=== PATIENT | female | born 1940 | race Caucasian/White ===

== ENCOUNTER 2023-08-10 11:38 | Inpatient (IN) | payer MEDICARE ==
[2023-08-10 12:40] LABS: #Basophils 0.1 thou/uL (0.0-0.2); #Eosinphils 0.2 thou/uL (0.0-0.7); #Monocytes 0.4 thou/uL (0.11-0.59); %Eosinophils 1.5 % (0.0-10.0); %Lymphocytes 15.4 % (21.0-51.0); %Monocytes 4.1 % (0.0-10.0); %Neutrophils 77.7 % (42.0-75.0); Hematocrit 47.1 % (36.0-47.0); Hemoglobin 14.8 g/dL (12.0-16.0); Mean Corpuscular HGB CONC 31.4 g/dL (32.0-36.0); Mean Corpuscular Hemoglobin 29.3 pg (27.0-31.0); Mean Corpuscular Volume 93.3 fl (78.0-98.0); Mean Platelet Volume 10.1 fL (7.4-10.4); Platelet Count 222 10x3/uL (130-400); RBC Distribution Width 14.3 % (11.5-14.5); Red Blood Cell (RBC) Count 5.05 mill/uL (4.20-5.40); White Blood Cell (WBC) Count 10.3 10x3/uL (4.8-10.8)
[2023-08-10 12:45] LABS: SARS-CoV-2 NAA Rapid Test Not Detected (NotDetected)
[2023-08-10 13:08] LABS: ALT (SGPT) 20 U/L (8-55); AST (SGOT) 29 U/L (5-34); Albumin 3.6 g/dL (3.4-4.8); Alkaline Phosphatase 53 U/L (40-110); Anion Gap 18 mmol/L (10-20); BUN (Urea Nitrogen) 23 mg/dL (9.8-20.1); Bilirubin, Total 0.4 mg/dL (0.2-1.2); Calc. Creatinine Clearance 0 mL/min (70-130); Calcium 8.8 mg/dL (7.8-10.44); Carbon Dioxide 20 mmol/L (23-31); Chloride 106 mmol/L (98-107); Estimated GFR 50; Glucose 105 mg/dL (83-110); Potassium 3.9 mmol/L (3.5-5.1); Protein, Total 6.6 g/dL (5.8-8.1); Sodium 140 mmol/L (136-145)
[2023-08-10 13:20] LABS: Critical Call Chem Troponin I ERS.DEC @1320; Troponin I 0.345 ng/mL (< 0.028)
[2023-08-10] MEDS ORDERED: Furosemide 40 MG (4 mL) VIAL ONE (13:32)
[2023-08-10] MEDS ORDERED: Enoxaparin 60 MG (0.6 mL) SYRINGE ONE (13:33)
[2023-08-10] MEDS ORDERED: HYDROcodone/Acetaminophen 5/325 mg Tablet PO PRN (14:40)
[2023-08-10] MEDS ORDERED: Ondansetron PF 4 MG/2 ML Vial IVP PRN (14:40)
[2023-08-10] MEDS ORDERED: Senokot S 8.6-50 MG TAB PO PRN (14:40)
[2023-08-10 16:59] LABS: Critical Call Chem Troponin I NUR.JR24 @1659; Troponin I 3.434 ng/mL (< 0.028)
[2023-08-10] MEDS ORDERED: Morphine 2 MG/ML VIAL ONE (19:49)
[2023-08-10 20:47] LABS: Critical Call Chem Troponin I NUR.JR24 @2047; Troponin I 6.414 ng/mL (< 0.028)
[2023-08-10] MEDS ORDERED: Famotidine 20 MG TAB PO SCH (21:00)
[2023-08-10] MEDS ORDERED: Enoxaparin 60 MG (0.6 mL) SYRINGE SC SCH (21:00)
[2023-08-10 22:11] VITALS: BMI 23.1
[2023-08-11] MEDS: Acetaminophen 325 MG TAB PO PRN ×3 (01:48→16:12)
[2023-08-11] MEDS ORDERED: HYDROcodone/Acetaminophen 5/325 mg Tablet PO PRN (01:59)
[2023-08-11] MEDS ORDERED: Morphine 2 MG/ML VIAL SLOW IVP PRN (03:36)
[2023-08-11 04:25] LABS: #Basophils 0.1 thou/uL (0.0-0.2); #Eosinphils 0.1 thou/uL (0.0-0.7); #Monocytes 0.6 thou/uL (0.11-0.59); #Neutrophils 4.6 thou/uL (1.40-6.50); %Basophils 0.8 % (0.0-1.0); %Eosinophils 1.1 % (0.0-10.0); %Lymphocytes 32.1 % (21.0-51.0); %Monocytes 7.9 % (0.0-10.0); Hemoglobin 12.9 g/dL (12.0-16.0); Mean Corpuscular HGB CONC 33.1 g/dL (32.0-36.0); Mean Corpuscular Hemoglobin 29.9 pg (27.0-31.0); Mean Platelet Volume 10.5 fL (7.4-10.4); Platelet Count 203 10x3/uL (130-400); RBC Distribution Width 14.4 % (11.5-14.5); Red Blood Cell (RBC) Count 4.32 mill/uL (4.20-5.40); White Blood Cell (WBC) Count 7.9 10x3/uL (4.8-10.8)
[2023-08-11 04:48] LABS: Mean Corpuscular Volume 90.3 fl (78.0-98.0)
[2023-08-11 04:57] LABS: Anion Gap 15 mmol/L (10-20); BUN (Urea Nitrogen) 25 mg/dL (9.8-20.1); Calc. Creatinine Clearance 47 mL/min (70-130); Calcium 8.6 mg/dL (7.8-10.44); Carbon Dioxide 23 mmol/L (23-31); Chloride 106 mmol/L (98-107); Estimated GFR 66; Glucose 86 mg/dL (83-110); Potassium 3.5 mmol/L (3.5-5.1); Sodium 140 mmol/L (136-145)
[2023-08-11] MEDS ORDERED: Furosemide 40 MG (4 mL) VIAL SLOW IVP SCH (06:00)
[2023-08-11 08:26] LABS: Cardiac Risk 4.5 (Less than 4.5)
[2023-08-11] MEDS ORDERED: CATH FS PRN (09:00)
[2023-08-11] MEDS ORDERED: Enoxaparin 60 MG (0.6 mL) SYRINGE SC SCH (09:00)
[2023-08-11] MEDS ORDERED: Aspirin 325 MG TAB PO SCH (09:00)
[2023-08-11] MEDS: Sacubitril 24MG/Valsartan 26 MG TAB PO SCH ×2 (09:47→20:39)
[2023-08-11] MEDS ORDERED: Heparin 10,000 UNITS/ 10 ML VIAL ONE (10:07)
[2023-08-11] MEDS ORDERED: fentaNYL 50 mcg/mL 1 mL Vial ONE (10:07)
[2023-08-11] MEDS ORDERED: Midazolam HCl 2 mg/2 ml Vial ONE (10:07)
[2023-08-11] MEDS ORDERED: Nitroglycerin 50 MG/250 ML BOT 0 ML ONE (10:08)
[2023-08-11] MEDS ORDERED: Ketorolac Tromethamine 30 MG (1 mL) VIAL ONE (11:17)
[2023-08-11] MEDS ORDERED: Nitroglycerin 2% Ointment 1 INCH/1 GM Packet ONE ×2 (11:33→11:45)
[2023-08-11] MEDS ORDERED: hydrALAZINE 20 MG/ML VIAL ONE (11:45)
[2023-08-11] MEDS ORDERED: Nitroglycerin 4.9 GM Bottle ONE (11:55)
[2023-08-11] MEDS ORDERED: Iopamidol 370 76% 100 ML VIAL ONE (12:40)
[2023-08-11] MEDS ORDERED: Clopidogrel Bisulfate 300 MG TAB PO SCH (14:00)
[2023-08-11] MEDS: Carvedilol 6.25 MG TAB PO SCH (16:12)
[2023-08-11] MEDS: Atorvastatin Calcium 40 MG TAB PO SCH (20:39)
[2023-08-11] MEDS ORDERED: Potassium Chloride 20 MEQ TAB PO SCH (23:15)
[2023-08-12 05:17] LABS: Anion Gap 14 mmol/L (10-20); BUN (Urea Nitrogen) 29 mg/dL (9.8-20.1); Calc. Creatinine Clearance 35 mL/min (70-130); Calcium 8.9 mg/dL (7.8-10.44); Carbon Dioxide 22 mmol/L (23-31); Chloride 107 mmol/L (98-107); Estimated GFR 48; Glucose 92 mg/dL (83-110); Magnesium 2.1 mg/dL (1.6-2.6); Potassium 4.4 mmol/L (3.5-5.1); Sodium 139 mmol/L (136-145)
[2023-08-12] MEDS ORDERED: Carvedilol 6.25 MG TAB PO SCH (10:15)
[2023-08-12] MEDS ORDERED: Empagliflozin 10 MG TAB PO SCH (10:15)
[2023-08-12] MEDS: Clopidogrel Bisulfate 75 MG TAB PO SCH (10:37)
[2023-08-12] MEDS: Spironolactone 25 MG TAB PO SCH (10:37)
[2023-08-12] MEDS: Aspirin 81 mg Enteric Coated Tablet PO SCH (10:37)
[2023-08-12] MEDS: Sacubitril 24MG/Valsartan 26 MG TAB PO SCH ×2 (10:38→20:34)
[2023-08-12] MEDS: Carvedilol 6.25 MG TAB PO SCH ×3 (10:38→17:30)
[2023-08-12] MEDS: Methyl Salicylate/Menthol 85 GM TUBE TOP SCH (20:34)
[2023-08-12] MEDS: Atorvastatin Calcium 40 MG TAB PO SCH (20:34)
[2023-08-12] MEDS: Acetaminophen 325 MG TAB PO PRN (23:06)
[2023-08-13 05:52] LABS: Anion Gap 13 mmol/L (10-20); BUN (Urea Nitrogen) 25 mg/dL (9.8-20.1); Calc. Creatinine Clearance 41 mL/min (70-130); Calcium 9.1 mg/dL (7.8-10.44); Carbon Dioxide 20 mmol/L (23-31); Chloride 107 mmol/L (98-107); Estimated GFR 63; Glucose 93 mg/dL (83-110); Potassium 3.8 mmol/L (3.5-5.1); Sodium 136 mmol/L (136-145)
[2023-08-13] MEDS: Spironolactone 25 MG TAB PO SCH (09:01)
[2023-08-13] MEDS: Clopidogrel Bisulfate 75 MG TAB PO SCH (09:01)
[2023-08-13] MEDS: Sacubitril 24MG/Valsartan 26 MG TAB PO SCH ×2 (09:01→20:14)
[2023-08-13] MEDS: Aspirin 81 mg Enteric Coated Tablet PO SCH (09:01)
[2023-08-13] MEDS: Carvedilol 6.25 MG TAB PO SCH ×2 (09:02→18:02)
[2023-08-13] MEDS: Empagliflozin 10 MG TAB PO SCH (09:03)
[2023-08-13] MEDS: Methyl Salicylate/Menthol 85 GM TUBE TOP SCH ×2 (09:03→20:14)
[2023-08-13] MEDS: Isosorbide Mononitrate 30 MG ER.TAB PO SCH (09:29)
[2023-08-13] MEDS ORDERED: Sodium Chloride 0.9% 500 ML IV SCH (18:30)
[2023-08-13] MEDS: Atorvastatin Calcium 40 MG TAB PO SCH (20:13)
[2023-08-14] MEDS: Acetaminophen 325 MG TAB PO PRN ×2 (00:46→12:20)
[2023-08-14 06:49] LABS: Anion Gap 13 mmol/L (10-20); BUN (Urea Nitrogen) 30 mg/dL (9.8-20.1); Calc. Creatinine Clearance 33 mL/min (70-130); Calcium 8.8 mg/dL (7.8-10.44); Carbon Dioxide 22 mmol/L (23-31); Chloride 107 mmol/L (98-107); Estimated GFR 46; Glucose 78 mg/dL (83-110); Sodium 138 mmol/L (136-145)
[2023-08-14] MEDS: Methyl Salicylate/Menthol 85 GM TUBE TOP SCH (09:14)
[2023-08-14] MEDS: Sacubitril 24MG/Valsartan 26 MG TAB PO SCH (09:15)
[2023-08-14] MEDS: Spironolactone 25 MG TAB PO SCH (09:15)
[2023-08-14] MEDS: Isosorbide Mononitrate 30 MG ER.TAB PO SCH (09:15)
[2023-08-14] MEDS: Carvedilol 6.25 MG TAB PO SCH (09:15)
[2023-08-14] MEDS: Aspirin 81 mg Enteric Coated Tablet PO SCH (09:15)
[2023-08-14] MEDS: Empagliflozin 10 MG TAB PO SCH (09:16)
[2023-08-14] MEDS: Clopidogrel Bisulfate 75 MG TAB PO SCH (09:16)
[2023-08-14 13:00] VITALS: BP 90/50; TEMP 97.7
[2023-08-14] MEDS ORDERED: Carvedilol 25 MG TAB PO SCH (17:00)
== END 2023-08-14 15:29 | disposition home or self-care (01) | DRG 280 ==
LOC: ERS 11:38 → ERHOLD 14:49 → 2SW 21:49
PROVIDERS: ADMIT Internal Medicine; ATTEND Emergency Medicine
PROC: 5A09357 Assistance with Respiratory Ventilation, Less than 24 Consecutive Hours, Continuous Positive Airway Pressure (ICD-10-PCS; 2023-08-10)
PROC: 4A023N7 Measurement of Cardiac Sampling and Pressure, Left Heart, Percutaneous Approach (ICD-10-PCS; principal; 2023-08-11)
PROC: B2151ZZ Fluoroscopy of Left Heart using Low Osmolar Contrast (ICD-10-PCS; 2023-08-11)
PROC: B2111ZZ Fluoroscopy of Multiple Coronary Arteries using Low Osmolar Contrast (ICD-10-PCS; 2023-08-11)
DX: I21.4 Non-ST elevation (NSTEMI) myocardial infarction (principal); I50.21 Acute systolic (congestive) heart failure; J81.0 Acute pulmonary edema; I11.0 Hypertensive heart disease with heart failure; Z11.52 Encounter for screening for COVID-19; E78.5 Hyperlipidemia, unspecified; Z90.49 Acquired absence of other specified parts of digestive tract; Z90.710 Acquired absence of both cervix and uterus; Z98.890 Other specified postprocedural states; Z87.891 Personal history of nicotine dependence; M41.9 Scoliosis, unspecified; I25.10 Atherosclerotic heart disease of native coronary artery without angina pectoris; Z79.899 Other long term (current) drug therapy; K21.9 Gastro-esophageal reflux disease without esophagitis; M25.562 Pain in left knee; Z79.82 Long term (current) use of aspirin; I25.5 Ischemic cardiomyopathy
CPT/HCPCS: 36415; 71045; 80048; 80053; 80061; 83735; 83880; 84145; 84443; 84484; 85025; 93005; 93010; 93306; 93458; 93798; 94660; 96372; 96374; C1769; C1887; J0360; J1644; J1650; J1885; J1940; J2250; J2272; J3010; J7030; Q9967

== ENCOUNTER 2023-10-26 23:19 | Inpatient (IN) | payer MEDICARE ==
[2023-10-26] MEDS ORDERED: Fentanyl 100 MCG/2 ML VIAL ONE ×2 (23:22→23:50)
[2023-10-26] MEDS ORDERED: NOREPINEPHRINE 8 MG/250 ML-D5W 250 ML ONE (23:26)
[2023-10-26] MEDS ORDERED: Sodium Bicarb 50 MEQ/50 ML Abboject 8.4% SYRINGE ONE (23:27)
[2023-10-26 23:42] LABS: Analyzer IN Cardio ER; Base Excess (BEa) -6.4 mEq/L (-2.0 to +3.0); CO2 Tension 51.1 mmHg (35.0-45.0); Calcium, Ionized (arterial) 1.04 mmol/L (1.12-1.30); Carboxyhemoglobin (COHb) 1.3 gm% (0.0-3.0); Hematocrit-ABG 29 % (36.0-47.0); Hemoglobin (Hb) 9.9 g/dL (12.0-16.0); O2 Tension (PaO2), arterial 220.6 mmHg (> 60.0); pH, Arterial 7.232 (7.35-7.45)
[2023-10-26] MEDS ORDERED: Fentanyl CADD 100 ML IV SCH (23:45)
[2023-10-26] MEDS ORDERED: Sodium Bicarb 50 mEq/50 ML VIAL ONE (23:46)
[2023-10-26 23:55] LABS: #Basophils 0.06 10x3/uL (0.0-0.2); %Basophils 0.5 % (0.0-1.0); %Lymphocytes 16.7 % (21.0-51.0); %Monocytes 3.4 % (0.0-10.0); %Neutrophils 74.3 % (42.0-75.0); Hematocrit 28.2 % (36.0-47.0); Hemoglobin 8.8 g/dL (12.0-16.0); Mean Corpuscular HGB CONC 31.2 g/dL (32.0-36.0); Mean Corpuscular Hemoglobin 29.3 pg (27.0-31.0); Mean Platelet Volume 9.5 fL (7.4-10.4); Platelet Count 303 10x3/uL (130-400); RBC Distribution Width 14.6 % (11.5-14.5)
[2023-10-27 00:11] LABS: INR-International Normal Ratio 1.5; Prothrombin Time 18.3 sec (12.0-14.7)
[2023-10-27 00:12] LABS: PTT 40.1 sec (22.9-36.1)
[2023-10-27 00:14] LABS: ALT (SGPT) 42 U/L (8-55); AST (SGOT) 65 U/L (5-34); Albumin 2.2 g/dL (3.4-4.8); Alkaline Phosphatase 60 U/L (40-110); Anion Gap 19 mmol/L (10-20); BUN (Urea Nitrogen) 20 mg/dL (9.8-20.1); Bilirubin, Total 0.3 mg/dL (0.2-1.2); Calc. Creatinine Clearance 0 mL/min (70-130); Carbon Dioxide 19 mmol/L (23-31); Chloride 107 mmol/L (98-107); Critical Call Chem-Lactate NUR.NKE@0014; Estimated GFR 47; Globulin 2.3 g/dL (2.4-3.5); Glucose 177 mg/dL (83-110); Lipase 82 U/L (8-78); Potassium 4.9 mmol/L (3.5-5.1); Protein, Total 4.5 g/dL (5.8-8.1); Sodium 140 mmol/L (136-145)
[2023-10-27 00:15] LABS: Calcium 6.7 mg/dL (7.8-10.44); Critical Call Chemistry NUR.NKE@0015
[2023-10-27 00:43] LABS: Puncture Site LRA
[2023-10-27 00:44] LABS: ALV-art Gradient 428.525 mmHg (0-20)
[2023-10-27 01:04] LABS: Troponin I 0.026 ng/mL (< 0.028)
[2023-10-27] MEDS ORDERED: Calcium Chloride 1 GM/10 ML Abboject SYRINGE ONE (02:37)
[2023-10-27] MEDS ORDERED: Dexamethasone 10 MG/ML VIAL ONE (02:42)
[2023-10-27] MEDS ORDERED: Cefepime 2 GM VIAL ONE (02:42)
[2023-10-27] MEDS ORDERED: Vancomycin 1 GM/200 ML (FROZEN) BAG ONE (02:42)
[2023-10-27] MEDS ORDERED: Sodium Chloride 0.9% 100 ML ONE (02:43)
[2023-10-27 03:09] LABS: Lactic Acid 2.7 mmol/L (0.5-2.2)
[2023-10-27] MEDS ORDERED: Ventilator Sedation Protocol 1 EACH FS SCH (04:10)
[2023-10-27] MEDS ORDERED: Fentanyl CADD 100 ML IV SCH (04:15)
[2023-10-27] MEDS ORDERED: Propofol 1,000 MG/100 ML VIAL IV PRN (04:15)
[2023-10-27] MEDS ORDERED: LORazepam 2 MG/ML SYR.(CARPUJECT) SLOW IVP PRN ×2 (04:15→12:06)
[2023-10-27] MEDS ORDERED: Propofol BOLUS 1,000 MG/100 ML VIAL IV PRN (04:15)
[2023-10-27] MEDS ORDERED: Morphine 2 MG/ML VIAL SLOW IVP PRN (04:15)
[2023-10-27] MEDS ORDERED: Lorazepam 2 MG/ML VIAL SLOW IVP PRN (04:15)
[2023-10-27] MEDS ORDERED: Fentanyl BOLUS 250 ML IVPB PRN (04:15)
[2023-10-27] MEDS ORDERED: DISCONTINUE PREVIOUS NARCOTIC PAIN MEDICATIONS AND BENZODIAZEPINES FS SCH (04:15)
[2023-10-27] MEDS ORDERED: Ondansetron PF 4 MG/2 ML Vial IVP PRN (04:21)
[2023-10-27] MEDS ORDERED: Ondansetron ODT 4 MG TAB PO PRN (04:21)
[2023-10-27] MEDS ORDERED: Acetaminophen 650 MG Suppository PR PRN (04:21)
[2023-10-27] MEDS ORDERED: Dextrose 50% Abboject 50 ML SYRINGE SLOW IVP PRN (04:23)
[2023-10-27] MEDS ORDERED: Glucagon 1 MG/ML KIT IM PRN (04:23)
[2023-10-27] MEDS ORDERED: Dextrose 5% in Water 1,000 ML IV PRN (04:23)
[2023-10-27] MEDS ORDERED: Electrolyte Replacement Protocol FS PRN (04:30)
[2023-10-27 04:46] LABS: #Basophils 0.06 10x3/uL (0.0-0.2); %Basophils 0.3 % (0.0-1.0); %Eosinophils 0.5 % (0.0-10.0); %Lymphocytes 10.1 % (21.0-51.0); %Monocytes 5.5 % (0.0-10.0); Hematocrit 33.6 % (36.0-47.0); Hemoglobin 10.7 g/dL (12.0-16.0); Mean Corpuscular HGB CONC 31.8 g/dL (32.0-36.0); Mean Corpuscular Hemoglobin 29.5 pg (27.0-31.0); Mean Corpuscular Volume 92.6 fL (78.0-98.0); Mean Platelet Volume 9.7 fL (7.4-10.4); Platelet Count 259 10x3/uL (130-400); RBC Distribution Width 15.3 % (11.5-14.5); Red Blood Cell (RBC) Count 3.63 mill/uL (4.20-5.40)
[2023-10-27 05:07] LABS: Fibrinogen 329 mg/dL (253-463)
[2023-10-27] MEDS: NOREPINEPHRINE 8 MG/250 ML-D5W 250 ML IVPB SCH (05:10)
[2023-10-27] MEDS: Pantoprazole 40 MG VIAL IVP SCH (05:10)
[2023-10-27 05:13] LABS: Albumin 2.7 g/dL (3.4-4.8)
[2023-10-27 05:14] LABS: Chloride 108 mmol/L (98-107); Potassium 4.6 mmol/L (3.5-5.1); Sodium 144 mmol/L (136-145)
[2023-10-27 05:16] LABS: Globulin 2.1 g/dL (2.4-3.5); Glucose 152 mg/dL (83-110); Protein, Total 4.8 g/dL (5.8-8.1)
[2023-10-27 05:17] LABS: Anion Gap 12 mmol/L (10-20); Calcium 8.8 mg/dL (7.8-10.44); Carbon Dioxide 29 mmol/L (23-31)
[2023-10-27 05:18] LABS: Alkaline Phosphatase 58 U/L (40-110)
[2023-10-27 05:19] LABS: Calc. Creatinine Clearance 0 mL/min (70-130); Estimated GFR 46
[2023-10-27 05:20] LABS: BUN (Urea Nitrogen) 27 mg/dL (9.8-20.1)
[2023-10-27 05:21] LABS: AST (SGOT) 66 U/L (5-34)
[2023-10-27 05:22] LABS: ALT (SGPT) 53 U/L (8-55)
[2023-10-27 05:23] LABS: Magnesium 2.1 mg/dL (1.6-2.6)
[2023-10-27 05:25] LABS: D-Dimer Test Greater than 20.00 mcg/mL (0.27-0.43)
[2023-10-27 05:56] LABS: Lactic Acid 3.3 mmol/L (0.5-2.2)
[2023-10-27] MEDS: Albumin 25% 25 GM (100 mL) BOT IVPB SCH (06:00)
[2023-10-27] MEDS: Lactated Ringer's 1,000 ML IV SCH (06:15)
[2023-10-27 06:21] VITALS: BMI 21.7
[2023-10-27] MEDS ORDERED: EPINEPHrine 4 MG in Dextrose 5% in Water 250 ML IV SCH (07:00)
[2023-10-27] MEDS ORDERED: DOBUTamine 500 mg/250 ml 250 ML IVPB SCH (07:00)
[2023-10-27 07:16] LABS: Actual Bicarbonate (HCO3a) 25.4 mEq/L (22-28); Base Excess (BEa) -1.6 mEq/L (-2.0 to +3.0); CO2 Tension 53.4 mmHg (35.0-45.0); Calcium, Ionized (arterial) 1.12 mmol/L (1.12-1.30); Carboxyhemoglobin (COHb) 2.3 gm% (0.0-3.0); Hematocrit-ABG 32 % (36.0-47.0); O2 Tension (PaO2), arterial 82.6 mmHg (> 60.0); Potassium - ABG Lab 3.94 mmol/L (3.70-5.30); pH, Arterial 7.295 (7.35-7.45)
[2023-10-27 07:19] LABS: Puncture Site ALINE
[2023-10-27] MEDS: Electrolyte Replacement Protocol 1 EACH FS ONE (08:06)
[2023-10-27] MEDS ORDERED: Famotidine/PF 20 mg/2ml Vial SLOW IVP SCH (09:00)
[2023-10-27] MEDS ORDERED: Famotidine 20 MG TAB PO SCH (09:00)
[2023-10-27 10:53] VITALS: BP 117/56
[2023-10-27 11:24] VITALS: TEMP 98.2
[2023-10-27] MEDS ORDERED: Iopamidol-370 76% 500 ML MDV (1 ML CHARGE) ONE (11:48)
[2023-10-27] MEDS: Morphine 4 MG/ML VIAL SLOW IVP PRN (12:14)
[2023-10-27] MEDS ORDERED: Cefepime 1 GM in Sodium Chloride 0.9% 100 ML IVPB SCH (15:00)
[2023-10-27] MEDS ORDERED: Pantoprazole 40 MG VIAL IVP SCH (21:00)
[2023-10-27] MEDS ORDERED: Vancomycin (BATCH) 1.5 GM in Premix 1 BAG IVPB SCH (21:00)
[2023-10-28] MEDS ORDERED: Vancomycin HCl 750 MG in Sodium Chloride 0.9% 250 ML 250 ML IVPB SCH (06:00)
== END 2023-10-27 12:10 | disposition expired | DRG 208 ==
LOC: ERS 23:19 → CCU 10-27 04:24
PROVIDERS: ADMIT Student in an Organized Health Care Education/Training Program; ATTEND Emergency Medicine
PROC: 30233K1 Transfusion of Nonautologous Frozen Plasma into Peripheral Vein, Percutaneous Approach (ICD-10-PCS; 2023-10-26)
PROC: 30233N1 Transfusion of Nonautologous Red Blood Cells into Peripheral Vein, Percutaneous Approach (ICD-10-PCS; 2023-10-26)
PROC: 4A133R1 Monitoring of Arterial Saturation, Peripheral, Percutaneous Approach (ICD-10-PCS; 2023-10-26)
PROC: 3E033XZ Introduction of Vasopressor into Peripheral Vein, Percutaneous Approach (ICD-10-PCS; 2023-10-26)
PROC: 0W9B30Z Drainage of Left Pleural Cavity with Drainage Device, Percutaneous Approach (ICD-10-PCS; principal; 2023-10-27)
PROC: 5A1935Z Respiratory Ventilation, Less than 24 Consecutive Hours (ICD-10-PCS; 2023-10-27)
PROC: 30233J1 Transfusion of Nonautologous Serum Albumin into Peripheral Vein, Percutaneous Approach (ICD-10-PCS; 2023-10-27)
PROC: 0T9B70Z Drainage of Bladder with Drainage Device, Via Natural or Artificial Opening (ICD-10-PCS; 2023-10-27)
PROC: 06HY33Z Insertion of Infusion Device into Lower Vein, Percutaneous Approach (ICD-10-PCS; 2023-10-27)
PROC: 0DH67UZ Insertion of Feeding Device into Stomach, Via Natural or Artificial Opening (ICD-10-PCS; 2023-10-27)
PROC: 30233R1 Transfusion of Nonautologous Platelets into Peripheral Vein, Percutaneous Approach (ICD-10-PCS; 2023-10-27)
DX: J69.0 Pneumonitis due to inhalation of food and vomit (principal); D65 Disseminated intravascular coagulation [defibrination syndrome]; J96.01 Acute respiratory failure with hypoxia; G93.41 Metabolic encephalopathy; S27.1XXA Traumatic hemothorax, initial encounter; J96.02 Acute respiratory failure with hypercapnia; T79.7XXA Traumatic subcutaneous emphysema, initial encounter; I50.22 Chronic systolic (congestive) heart failure; S27.0XXA Traumatic pneumothorax, initial encounter; I42.9 Cardiomyopathy, unspecified; M96.A3 Multiple fractures of ribs associated with chest compression and cardiopulmonary resuscitation; E87.4 Mixed disorder of acid-base balance; Z51.5 Encounter for palliative care; Z66 Do not resuscitate; I46.9 Cardiac arrest, cause unspecified; R57.8 Other shock; I95.9 Hypotension, unspecified; I25.10 Atherosclerotic heart disease of native coronary artery without angina pectoris; I11.0 Hypertensive heart disease with heart failure; E83.51 Hypocalcemia; E88.09 Other disorders of plasma-protein metabolism, not elsewhere classified; E78.5 Hyperlipidemia, unspecified; K21.9 Gastro-esophageal reflux disease without esophagitis; M41.9 Scoliosis, unspecified; Z87.891 Personal history of nicotine dependence; Z90.710 Acquired absence of both cervix and uterus; Z88.8 Allergy status to other drugs, medicaments and biological substances; Z88.6 Allergy status to analgesic agent; I25.2 Old myocardial infarction; Z79.82 Long term (current) use of aspirin; Z79.899 Other long term (current) drug therapy; Z79.01 Long term (current) use of anticoagulants; Z90.49 Acquired absence of other specified parts of digestive tract; Z98.890 Other specified postprocedural states; Z78.1 Physical restraint status
CPT/HCPCS: 36415; 36430; 36600; 70450; 71045; 71260; 74177; 80053; 82533; 82805; 83605; 83690; 83735; 83880; 84443; 84484; 85025; 85379; 85384; 85610; 85730; 86850; 86900; 86901; 87040; 93005; 94002; 94003; C9113; J0692; J1100; J2060; J2270; J3010; J3370-JW; J3490; J7120; P9016; P9047; P9048; Q9967